=== PATIENT | male | born 1970 | race Caucasian/White ===

== ENCOUNTER → 2020-10-04 | Outpatient (CLI) | payer OTHER ==
--- NOTE | 2020-10-04 17:40 | RAD ---
XR CHEST 2V History: Reason: PLEASE INDICATE CARDIACTHORACIC RATIO FOR DISABILITY Comparison: None. Findings: The cardiomediastinal silhouette is normal. The cardiothoracic ratio is 0.38. Pulmonary vasculature i s normal. Lungs are borderline hyperexpanded. The lungs are clear. No pleural effusion or pneumothora x is seen. There is no acute bone abnormality. IMPRESSION: No acute cardiopulmonary process. Electronically signed by: Navneet Buck MD (10/04/2020 5:38 PM) [id number]
== END ==
LOC: DXRAD 10:10
PROVIDERS: ATTEND Family Medicine
DX: Z02.71 Encounter for disability determination (principal); R56.9 Unspecified convulsions; I10 Essential (primary) hypertension; J44.9 Chronic obstructive pulmonary disease, unspecified
CPT/HCPCS: 71046